=== PATIENT | female | born 1965 | race Caucasian/White ===

== ENCOUNTER 2017-12-10 10:35 | Emergency (ER) | payer OTHER ==
[2017-12-10 10:44] VITALS: BMI 30.2
[2017-12-10] MEDS ORDERED: SODIUM CHLORIDE 1,000 ML IV STA (10:47)
[2017-12-10] MEDS ORDERED: ACETAMINOPHEN 1000 MG/100 ML VIAL (NON FORMULARY) IVPB ONE (10:47)
[2017-12-10] MEDS ORDERED: HYOSCYAMINE SULFATE 0.125 MG *ODT PO ONE (10:47)
[2017-12-10] MEDS ORDERED: FAMOTIDINE 20 MG/50 ML IVPB 20 MG/50 ML MG IVPB ONE ×2 (10:47→11:10)
--- NOTE | 2017-12-10 10:48 | PDOC ---
History of Present Illness - General Chief Complaint: Pain Stated Complaint: ABD PAIN Time Seen by Provider: 12/10/17 10:46 History Source: Patient Exam Limitations: No Limitations - History of Present Illness Initial Comments: 12/10/17 11:29 Ms Hand is a 52 yo F h/o right heel melanoma s/p resection and right groin lymph node dissection complicated by wound infection. Pt presents to the ER today with a complaint of abdominal pain Patient states her pain began approximately 8 weeks ago. She describes her pain as burning, located throughout her abdomen in the epigastric region, radiating down to the lower abdomen, over to the right lower abdomen and down the right leg. She states pain is constant, but waxes and wanes. No exacerbation or alleviating factors. She denies fevers or chills. She denies nausea, vomiting, diarrhea. Last bowel movement was yesterday, was formed and normal. Patient denies recent travel Patient denies dysuria, hematuria. When her symptoms began approximately 8 weeks ago, patient was seen by her primary care physician who stated she had nothing. She was then seen by Dr. Baptiste who referred her to [facility]. She reportedly had a CT of the abdomen and pelvis with contrast, and this is reportedly negative. She denies prior endoscopy or colonoscopy PMH: Melanoma, diabetes and hypertension. 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 ROS: GENERAL/CONSTITUTIONAL: Positive for fever and chills. Some diffuse weakness. No weight change.] HEAD, EYES, EARS, NOSE AND THROAT: No change in vision. No ear pain or discharge. No sore throat. CARDIOVASCULAR: No chest pain or shortness of breath. RESPIRATORY: No cough, wheezing, or hemoptysis. GASTROINTESTINAL: No vomiting, diarrhea or constipation. No rectal bleeding. GENITOURINARY: No dysuria, frequency, or change in urination. MUSCULOSKELETAL: No neck or back pain. SKIN AND BREASTS: No rash or easy bruising. NEUROLOGIC: No vertigo, loss of consciousness, or loss of sensation. PSYCHIATRIC: No depression or anxiety. ENDOCRINE: No increased thirst. No abnormal weight change. HEMATOLOGIC/LYMPHATIC: No anemia, easy bleeding, or history of blood clots. ALLERGIC/IMMUNOLOGIC: No hives or skin allergy. No latex allergy. PE: On examination this is a middle-aged woman in no acute distress Vital signs nml HEENT: Anicteric, PERRLA, EOMI, Membranes moist NECK: supple and nontender, No adenopathy LUNGS: clear to ascultation HEART: sounds are regular without murmurs ABD: soft and nontender without distention and with active bowel sounds MUSCULOSKELETAL: No CVA tenderness, No spinal midline tenderness EXTREMITIES: Pulses are intact, no edema NEURO: The patient is alert oriented x3 and motor function is 5 over 5 in both arms and the left leg. Cranial nerves II through XII are intact and sensation is grossly intact. PSYCH: Affect is normal Past History - Past Medical History Allergies/Adverse Reactions: Allergies Allergy/AdvReac Type Severity Reaction Status Date / Time No Known Drug Allergies Allergy Verified 12/10/17 10:36 Home Medications: Ambulatory Orders Aspirin [ASA -] 81 mg PO DAILY 11/09/15 Ibuprofen 600 mg PO QID PRN #20 tablet 11/09/15 Metformin HCl [Glucophage] 1,000 mg PO BID 11/09/15 Cephalexin [Keflex] 500 mg PO BID #10 capsule 12/10/17 Hyoscyamine Sulfate 0.125 mg PO BID PRN #10 tablet 12/10/17 Anemia: No Asthma: No Cancer: Yes (MALIGNANT MELANOMA RIGHT HEEL . S/P SURGERY 08/07/14) Cardiac Disorders: No CVA: No COPD: No CHF: No Dementia: No Diabetes: Yes (NIDDM X2011) GI Disorders: No Disorders: No HTN: Yes Hypercholesterolemia: Yes Liver Disease: No Seizures: No Thyroid Disease: No - Surgical History Abdominal Surgery: No Appendectomy: No Cardiac Surgery: No Cholecystectomy: No Lung Surgery: No Neurologic Surgery: No Orthopedic Surgery: No - Suicide/Smoking/Psychosocial Hx Smoking History: Never smoked Have you smoked in the past 12 months: No Information on smoking cessation initiated: No Hx Alcohol Use: No Drug/Substance Use Hx: No Substance Use Type: None Hx Substance Use Treatment: No *Physical Exam - Vital Signs Last Vital Signs Temp Pulse Resp BP Pulse Ox 98.9 F 96 H 18 164/91 96 12/10/17 10:35 12/10/17 10:35 12/10/17 10:35 12/10/17 10:35 12/10/17 10:35 ED Treatment Course - LABORATORY CBC & Chemistry Diagram: 12/10/17 11:00 12/10/17 11:00 - RADIOLOGY Radiology Studies Ordered: Category Date Time Status ABDOMEN & PELVIS CT WITH CONTR [CT] Stat CT Scan 12/10/17 10:47 Ordered Medical Decision Making - Medical Decision Making 12/10/17 11:34 52-year-old female with a history of melanoma who presents emergency department with a complaint of abdominal pain which is been present for 8 weeks. Patient has already had a CT scan which was negative. Her differential diagnosis includes but is not limited to: Diverticulosis, appendicitis complicated by perforation and abscess, small bowel junction, gastritis, pancreatitis, biliary colic Will do: Labs IV fluids Pepcid CT scan Reassess 12/10/17 11:48 Laboratory Tests 12/10/17 12/10/17 12/10/17 11:00 11:00 11:00 WBC 6.7 D Hgb 14.4 D Hct 43.1 D Plt Count 321 Sodium 132 L Potassium 3.7 Chloride 99 Carbon Dioxide 23 Anion Gap 10 BUN 11 D Random Glucose 298 H D Ur Specific [place] >= 1.030 H Urine Protein 2+ H Urine Glucose (UA) 2+ H Urine Ketones 3+ H Urine Blood Trace-intact H Ur Leukocyte Esterase Trace H Urine HCG, Qual 12/10/17 11:00 WBC Hgb Hct Plt Count Sodium Potassium Chloride Carbon Dioxide Anion Gap BUN Random Glucose Ur Specific [place] Urine Protein Urine Glucose (UA) Urine Ketones Urine Blood Ur Leukocyte Esterase Urine HCG, Qual Negative 12/10/17 12:43 Laboratory Tests 12/10/17 11:00 Urine RBC 3-5 Urine WBC 20-30 Ur Epithelial Cells 3-5 Pt has UTI Will treat with a dose of Ceftriaxone Will discharge on Keflex 500 BID 12/10/17 15:[address] Rodríguez Results reviewed with him He requests that patient be discharged to home if she can eat, is afebrile and has nml WBC Requests follow up with Dr Magana Call placed to Dr Magana Case reviewed with her She agrees with follow up as an outpatient She will see this patient Pt given copies of CT Pt asked to hold Metrormin for 48 hours and stay hydrated Follow up CHRIS (before the end of the week), Call tomorrow for appointment Clinical impression: Abd pain, initial presentation Pancreatic lesion, initial presentation 12/12/17 10:44 *DC/Admit/Observation/Transfer Diagnosis at time of Disposition: Enteritis, Pancreatic mass Abdominal pain Qualifiers: Abdominal location: unspecified location Qualified Code(s): R10.9 - Unspecified abdominal pain - Discharge Dispostion Disposition: HOME Condition at time of disposition: Stable Decision to Admit order: No - Prescriptions Prescriptions: Cephalexin [Keflex] 500 mg PO BID #10 capsule Hyoscyamine Sulfate 0.125 mg PO BID PRN #10 tablet PRN Reason: abdominal pain - Referrals Referrals: Izzy Huber MD [Staff Physician] - Ilda Martinez MD [Staff Physician] - - Patient Instructions Printed Discharge Instructions: DI for Abdominal Pain-Adult Additional Instructions: Ms Hand Rachel por entrar a la maryann de emergencias hoy. Por favor, asegrese de seguir con el Dr. Magana y el Dr. Martinez. Por favor use antibiticos para dunn infeccin del tracto urinario. Por favor use otro medicamento recetado si es necesario para el dolor. tambin puedes usar tylenol para el dolor. Por favor, coma comidas pequeas Debido a que se someti a rosalva tomografa computarizada con contraste, deber mantener metformina preethi 48 horas despus de dunn tomografa computarizada. Preethi hussain tiempo, jose 8 vasos de agua / da. Por favor regrese a la maryann de emergencias por cualquier sntoma nuevo. DEBE seguir con el Dr. Magana dentro de 1 semana. SI tiene problemas para hacerlo, DEBE informar a la oficina que erum solicit que vaya a la oficina dentro de 1 semana Thank you for coming in to the ER today. Please be sure to follow up with Dr Magana and Dr Maritnez. Please use antibiotic for your urinary tract infection. Please use other medication prescribed if needed for pain. you can also use tylenol for pain. Please eat small meals Because you had a CT scan with contrast, you will need to hold you Metformin for [address] scan. During this time, please drink 8 glasses of water/day. Please return to the ER for any new symptoms. You MUST follow up with Dr Magana within 1 week. IF you have trouble doing so, you MUST tell the office that she requested for your to go to the office within 1 week Print Language: GREENLANDIC - Post Discharge Activity
[2017-12-10] MEDS ORDERED: HYOSCYAMINE SULFATE 0.125 MG *ODT ONE (11:02)
[2017-12-10] MEDS ORDERED: ACETAMINOPHEN INJECTION 100 ML IVPB ONE (11:02)
[2017-12-10 11:06] LABS: URINE APPEARANCE Clear; URINE BILIRUBIN 1+ (NEGATIVE); URINE GLUCOSE (UA) 2+ (NEGATIVE); URINE KETONE 3+ (NEGATIVE); URINE NITRITE Negative (NEGATIVE); URINE UROBILINOGEN 0.2 (0.2-1.0)
[2017-12-10 11:07] LABS: URINE COLOR YELLOW; URINE LEUK ESTERASE TRACE (NEGATIVE); URINE PROTEIN 2+ (NEGATIVE)
[2017-12-10 11:14] LABS: BASO % 0.6 % (0-2.0); EOS % 0.4 % (0-4.5); HEMATOCRIT 43.1 % (32.4-45.2); HEMOGLOBIN 14.4 GM/dl (10.7-15.3); LYMPH % 30.1 % (8-40); MCHC 33.5 g/dl (32.0-36.0); MEAN CELL VOLUME 86.7 fl (80-96); MEAN PLT VOLUME 8.6 fl (7.5-11.1); NEUT % 62.9 % (42.8-82.8); PLATELET COUNT 321 K/MM3 (134-434); RBC 4.97 M/mm3 (3.60-5.2); RDW 13.5 % (11.6-15.6); WHITE BLOOD COUNT 6.7 K/mm3 (4.0-10.8)
[2017-12-10 11:28] LABS: ALK PHOS 113 U/L (32-92); AMYLASE 75 U/L (25-125); ANION GAP 10 (8-16); BILIRUBIN,TOTAL 0.5 mg/dl (0.2-1.0); BLOOD UREA NITROGEN 11 mg/dl (7-18); CHLORIDE 99 mmol/L (98-107); CO2 23 mmol/L (22-28); GLUCOSE,RANDOM 298 mg/dl (74-106); POTASSIUM 3.7 mmol/L (3.5-5.1); SGOT/AST 19 U/L (10-42); SGPT/ALT 22 U/L (10-40); SODIUM 132 mmol/L (136-145); TOT PROT 7.3 g/dl (6.4-8.3)
[2017-12-10 11:51] LABS: CREATININE < 0.8 mg/dl (0.6-1.3)
[2017-12-10 11:59] LABS: URINE WBC 20-30 (0-5)
[2017-12-10 12:00] LABS: URINE CASTS FINELY GRANULAR 0-1 /hpf
[2017-12-10 13:16] LABS: LIPASE 221 U/L (73-393)
[2017-12-10] MEDS ORDERED: CEFTRIAXONE 1 GM in DEXTROSE 5%-WATER - 50 ML IVPB ONE (14:32)
[2017-12-10] MEDS ORDERED: cefTRIAXone SODIUM 1 GM VIAL ONE (14:37)
[2017-12-10 15:38] VITALS: BP 138/76; PULSE 78; TEMP 98.1
== END 2017-12-10 15:39 | disposition home or self-care (01) ==
LOC: FER 10:35
PROC: 3E03329 Introduction of Other Anti-infective into Peripheral Vein, Percutaneous Approach (ICD-10-PCS; principal; 2017-12-10)
PROC: 3E033GC Introduction of Other Therapeutic Substance into Peripheral Vein, Percutaneous Approach (ICD-10-PCS; 2017-12-10)
PROC: 3E0337Z Introduction of Electrolytic and Water Balance Substance into Peripheral Vein, Percutaneous Approach (ICD-10-PCS; 2017-12-10)
PROC: 3E033NZ Introduction of Analgesics, Hypnotics, Sedatives into Peripheral Vein, Percutaneous Approach (ICD-10-PCS; 2017-12-10)
DX: K52.9 Noninfective gastroenteritis and colitis, unspecified (principal); R10.9 Unspecified abdominal pain; R19.09 Other intra-abdominal and pelvic swelling, mass and lump
CPT/HCPCS: 36415; 74177-TC; 80053; 81003; 81015; 82150; 83690; 84703; 85025; 87086; 99284-25; J0131; J7030